=== PATIENT | male | born 1955 | race Caucasian/White ===

== ENCOUNTER → 2022-07-04 09:22 | Outpatient (CLI) | payer BC, SELFPAY ==
[2022-07-04 11:21] LABS: COVID19 -Nasal RAPID Negative (Negative)
== END ==
PROVIDERS: PCP Internal Medicine; Visit Provider Surgery
DX: Z01.812 Encounter for preprocedural laboratory examination (principal); Z20.822 Contact with and (suspected) exposure to COVID-19
CPT/HCPCS: 87635; C9803

== ENCOUNTER 2022-07-07 11:25 | Day surgery (SDC) | payer BC, SELFPAY ==
[2022-07-07 11:48] VITALS: BP 141/85; PULSE 62; RESP 20; TEMP 36.6; O2SAT 100; BMI 25.1
[2022-07-07] MEDS: LACTATED RINGERS 1,000 ML 84 ML IV (11:58)
--- NOTE | 2022-07-07 12:02 | PM.HP.1 ---
History of Present Illness History of Present Illness Date Patient Seen: 07/07/22 Time Patient Seen: 12:02 Chief complaint: SDC Narrative: Here for colon cancer screening. Patient History Family & Social History Social History: household members spouse Tobacco & Substance use: Smoking Status Former smoker alcohol intake current alcohol intake frequency 0-2 drinks per day Substance Use Type does not use Meds Home Medications and Allergies Home Medications Medication Instructions Recorded Confirmed Type adalimumab 40 mg/0.8 mL 40 mg SUBCUT 07/07/22 History subcutaneous pen kit (Humira Pen) atorvastatin 40 mg tablet 40 mg PO DAILY 07/07/22 07/07/22 History ezetimibe 10 mg tablet 10 mg PO POSTTR 07/07/22 07/07/22 History olmesartan 20 mg tablet 20 mg PO DAILY 07/07/22 07/07/22 History Allergies Allergy/AdvReac Type Severity Reaction Status Date / Time No Known Drug Allergies Allergy Verified 07/07/22 11:41 Review of Systems Review of Systems ROS: Yes All systems reviewed with the patient and are negative except as otherwise documented Exam Vital Signs (past 8 hours): - 07/07/22 11:48 Temperature 97.9 F Pulse Rate 62 Respiratory Rate 20 Blood Pressure 141/85 H Pulse Oximetry 100 Oxygen Delivery Method Room Air Oxygen Delivery Method Room Air Const General: cooperative HENMT Head: normal to inspection Eyes General: appearance normal, both eyes and all related structures Neck Neck: normal visual inspection Chest Chest: normal inspection of the chest Resp Effort & Inspection: normal respiratory effort Cardio Rate: regular rate GI Inspection: normal to inspection Skin General: no rashes or lesions noted Neuro General: patient alert and patient awake Extrem General: normal to inspection and no pedal edema Psych Appearance: grossly normal Assessment & Plan Assessment & Plan narrative: 66-year-old male here for colon cancer screening. Colonoscopy is pursued today. Time Spent With Patient Critical Care time: I spent a total of [] minutes of critical care time on this patient's care today; this time is exclusive of procedural time.
--- NOTE | 2022-07-07 12:03 | PM.PREOP ---
Pre-operative Note COVID-19 COVID-19 status: Negative Result date/Date tested (Pos, Neg/Pending): 07/04/22 Criteria for continued procedure: Possibility delay results in more complex future surgery or treatment Interval Note History & Physical reviewed/Exam performed by Physician: Yes Changes to H&P: No ASA Class (for procedural sedation): II
--- NOTE | 2022-07-07 13:03 | P.OP.COLON_ITS ---
Operative Date/Time/Diagnoses Date of procedure: 07/07/22 Time of procedure: 13:03 Pre-op diagnosis: Colon cancer screening Post-op diagnosis: same Procedure & Clinicians Study performed: Colonoscopy Same procedure as scheduled: Yes Indications: Colon cancer screening Surgeon: Ted Hunt Procedure Notes SCOAP/Timeout: Done Procedure in detail: After the risks and benefits were explained, written and verbal informed consent was obtained. The patient was brought into the procedure room and placed into the left lateral decubitus position. Please see nurse library paraprofessional notes for sedation details. Digital rectal examination was accomplished. The scope was introduced into the patient and advanced under direct visualization to the cecum as identified by the appendiceal orifice and ileocecal valve. The scope was slowly withdrawn to carefully examine the mucosa for any defects or lesions. Comprehensive imaging was accomplished throughout the rectum including the dentate line. The colon was decompressed, the scope was then removed from the patient who tolerated the procedure well. Adult colonoscope Bowel prep adequate Scope withdrawal time: 9 minutes Sedation minutes: 16 Specimen(s): none sent Complications: none Impression: There were some scant diverticulosis in the left colon. No significant polyps mass lesions or inflammatory features identified throughout. Grade 2 hemorrhoids were noted. Endoscopic diagnosis 1. Grade 2 hemorrhoids 2. Mild diverticulosis Post-procedure Plan for aftercare: Repeat colonoscopy 10 years; sooner should symptoms warrant an earlier exam. Disposition: PACU
[2022-07-07 13:06] VITALS: BP 108/75; PULSE 69; RESP 11; TEMP 36.5; O2SAT 96
[2022-07-07 13:11] VITALS: BP 104/78; PULSE 69; RESP 14; O2SAT 94
[2022-07-07 13:16] VITALS: BP 114/80; PULSE 73; RESP 15; TEMP 36.6; O2SAT 96
[2022-07-07 13:21] VITALS: BP 123/86; PULSE 62; RESP 14; TEMP 36.8; O2SAT 95
== END 2022-07-07 13:30 | disposition home or self-care (01) ==
PROVIDERS: PCP Internal Medicine; Referring Provider Internal Medicine Gastroenterology; Visit Provider Internal Medicine Gastroenterology
PROC: 0DJD8ZZ Inspection of Lower Intestinal Tract, Via Natural or Artificial Opening Endoscopic (ICD-10-PCS; CPT 45378; principal; 2022-07-07 13:30)
DX: Z12.11 Encounter for screening for malignant neoplasm of colon (principal); K57.30 Diverticulosis of large intestine without perforation or abscess without bleeding; K64.1 Second degree hemorrhoids
CPT/HCPCS: 45378; J2704

== ENCOUNTER → 2023-01-22 09:20 | Outpatient (CLI) | payer BC, SELFPAY ==
--- NOTE | 2023-01-22 | DI.US.S_ITS ---
PROCEDURE: US ABD AORTA ANEURYSM SCREEN INDICATIONS: SCREENING FOR AAA TECHNIQUE: Real time scanning was performed of the aorta and iliac arteries, with image documentation. COMPARISON: None. FINDINGS: Aorta: Proximal aortic diameter measures 2.5 cm. Mid-aorta measures 1.9 cm. Distal aortic diameter is 1.7 cm. Iliac arteries: Right common iliac artery measures 0.8 cm. Left common iliac artery measures 0.8 cm. IMPRESSION: Abdominal aortic ectasia. 5 year sonographic surveillance recommended. Dictated by: Krystina Rodriguez M.D. on 01/22/2023 at 13:29 Approved by: Krystina Rodriguez M.D. on 01/22/2023 at 13:30
== END ==
PROVIDERS: PCP Physician Assistant; Referring Provider Physician Assistant; Visit Provider Physician Assistant
DX: Z13.6 Encounter for screening for cardiovascular disorders (principal); I77.811 Abdominal aortic ectasia
CPT/HCPCS: 76706